=== PATIENT | male | born 1935 | race Caucasian/White ===

== ENCOUNTER 2017-08-19 10:09 | Day surgery (SDC) | payer MEDICARE, BC ==
[~2017-08-19] VITALS: Ht 177.8 cm; Wt 87.8 kg
[~2017-08-19 10:09] MED LIST: ALLO300 PO; ASPI325T PO; BUPR150T3 PO; HYDR-2768 PO; NAPR500 PO; TAB-TAB PO; TELM1TAB56 PO
[2017-08-19] MEDS ORDERED: IOHEXOL 350 MG/ML 50 ML BTL (for Cath Lab) OTHER ONE (10:10)
[2017-08-19 10:30] VITALS: BP 137/63; PULSE 70; RESP 17; TEMP 97.8; O2SAT 97
[2017-08-19] MEDS ORDERED: BUPR150CR PO (11:02)
[2017-08-19] MEDS ORDERED: ASPI-516 CHEW (11:02)
[2017-08-19] MEDS ORDERED: METO25TA3 PO (11:02)
[2017-08-19] MEDS ORDERED: LOSA50TA PO (11:02)
[2017-08-19] MEDS ORDERED: ISOS60TA PO (11:02)
[2017-08-19 11:08] LABS: AUTOMATED NEUTROPHIL # 2.4 TH/MM3 (1.8-7.7); BASOPHIL # 0.1 TH/MM3 (0-0.2); EOSINOPHIL # 0.2 TH/MM3 (0-0.4); EOSINOPHIL % 4.8 % (0.0-4.0); HEMATOCRIT 38.6 % (39.0-51.0); HEMO FLAGS DIFF FINAL; LYMPH % 26.5 % (9.0-44.0); LYMPHOCYTE # 1.1 TH/MM3 (1.0-4.8); MEAN CELL VOLUME 89.4 FL (80.0-100.0); MEAN CORPUSCULAR HEMOGLOBIN 30.1 PG (27.0-34.0); MEAN CORPUSCULAR HGB CONC 33.7 % (32.0-36.0); MONO % 9.1 % (0.0-8.0); NEUT % 57.6 % (16.0-70.0); PLATELET COUNT 254 TH/MM3 (150-450); RED BLOOD COUNT 4.31 MIL/MM3 (4.50-5.90); RED CELL DISTRIBUTION WIDTH 14.4 % (11.6-17.2); WHITE BLOOD COUNT 4.1 TH/MM3 (4.0-11.0)
--- NOTE | 2017-08-19 11:21 | PD.VS.PN ---
Pre-operative Note Pre-operative diagnosis: PAD, R LE claudication Planned procedure: Aortogram w/ R LE angiogram, possible endovascular intervention Interval History: Pt has been feeling well and ready for surgery Labs: Laboratory Results Test 08/19/17 10:30 Hematocrit 38.6 % (39.0-51.0) Hemoglobin 13.0 GM/DL (13.0-17.0) Mean Corpuscular Hemoglobin 30.1 PG (27.0-34.0) Mean Corpuscular Hemoglobin Concent 33.7 % (32.0-36.0) Mean Corpuscular Volume 89.4 FL (80.0-100.0) Mean Platelet Volume 7.6 FL (7.0-11.0) Platelet Count 254 TH/MM3 (150-450) Red Blood Count 4.31 MIL/MM3 (4.50-5.90) Red Cell Distribution Width 14.4 % (11.6-17.2) White Blood Count 4.1 TH/MM3 (4.0-11.0) Blood: none needed Orders: NPO Post-operative destination: DOCU Operative site marked: Yes Consent: Informed consent has been obtained from Mariano Butler III. I have explained the procedure in detail and discussed the risks, benefits, and potential complications. All questions have been answered. Patient contact information: [phone] Scott Grace MD Aug 19, 2017 11:21
[2017-08-19 11:28] LABS: BICARBONATE 27.8 MEQ/L (21.0-32.0); POTASSIUM 4.2 MEQ/L (3.5-5.1)
[2017-08-19] MEDS ORDERED: MIDAZOLAM HCL 2 MG/2 ML VIAL ONE (11:40)
[2017-08-19] MEDS ORDERED: HEPARIN-NS/PF INJ 1,000 ML ONE (11:40)
[2017-08-19] MEDS ORDERED: SODIUM BICARBONATE 100 MEQ in D5W 1000 ML IV SCH (12:00)
--- NOTE | 2017-08-19 12:09 | HHI.PR ---
cc: Scott Grace MD Immediate Post Op Note Procedure Date: Aug 19, 2017 Pre Op Diagnosis: R LE claudication, PAD Post Op Diagnosis: R LE claudication, PAD Surgeon: Scott Grace Car Deliverer(s): none Procedure: Aortogram w/ R LE angiogram Findings: R popliteal occlusion Proximal AT/PT/peroneal occlusion Additional Information: 4F LEFT HAMMER ADJUSTER sheath removed in label printing machinist Complications: none Specimen(s) removed: none Estimated blood loss: 10mL Anesthesia: MAC Drains: None Patient to: Other (DOCU) Patient Condition: Good Date/Time of Procedure: SEE SURGICAL CARE RECORD Scott Grace MD Aug 19, 2017 12:09
--- NOTE | 2017-08-19 12:16 | CATHPROC ---
Rewardable HIS Report Study Information Study Number Admission Scheduled Start Study Start [id number] Aug 19 2017 10:09AM 08/19/2017 Aug 19 2017 10:45AM Kathleen Service Cath Endovascular Study Admit Source Facility Department Other [facility] - Clinical Rn Physician and Clinical Staff Initial Scott [employer] Teacher Adelaida Delarosa,BETY Other cathlab, cathlab Recorder Joel Wolf RCIS(BS) Scrub Jesse JordanRT(R) Procedures Performed Procedure Location (Site) Vessel Name Abdominal Angiogram Abd Aorta (A3) Aorta Wire insertion Fem Art (right) Femoral Art Equipment Time Licensed Clinical Social Worker Description Size Mfg Part Number Used/Scraped [id number] 11:50 ANGIO-DYNAMICS OMNI FLUSH 65CM CATHETER FR 4 Used *[id number] INTRODUCER SET, 11:50 [employer] FR 5 [id number] *[id number] Used MICROPUNCTURE, STIFFENED [id number] 11:50 Bunker Mode INDUSTRIES PACK, CCL CUSTOM * Used *[id number] 11:50 MERIT MEDICAL PRESSURE TUBING 48" 48" [id number] 11:50 NAMIC TUBING, HIGH PRESSURE 20" 20" Used *[id number] 11:50 NYCOMED OMNIPAQUE, 300 MG, 150ML 150ML [id number] Used 11:50 NYCOMED OMNIPAQUE, 300 MG, 50ML 50ML [id number] Used [id number] 11:50 NOLASCO MEDICAL BLANKET,WARM AIR CCL * Used *[id number] 11:50 TERUMO MEDICAL SHEATH, FR4 TERUMO (10CM) FR 4 Used *[id number] 11:50 TERUMO MEDICAL SHEATH, FR4 TERUMO (10CM) FR 4 Used *[id number] WIRE, ANGLED GLIDE .035 [id number] 11:50 TERUMO MEDICAL/CAROLE 260CM Used 260CM *[id number] History: Allergies Allergy Reaction No Known Allergies History: Other Current Smoker No Medication Medication Total Dose (Bolus/Oral) Medication Total Dosage/Unit 1% XYLOCAINE 20 mL FENTANYL 50 mcg VERSED 2 mg Medications (Bolus/Oral) Medication Time Given Dosage/Unit Administered By Reason 08/19/2017 11:48:29 VERSED 2 mg Adelaida Delarosa AM 2 mg VERSED given in lab by Adelaida Delarosa, RN in Left Antecubital via Peripheral IV. Ordered by Scott Ruiz. 08/19/2017 11:49:02 FENTANYL 50 mcg Adelaida Delarosa AM 50 mcg FENTANYL given in lab by Adelaida Delarosa RN in Left Antecubital via Peripheral IV. Ordered by Scott Grace. 08/19/2017 11:49:20 1% XYLOCAINE 20 mL Scott Grace AM 20 mL 1% XYLOCAINE given in lab by Scott Grcae in Left Groin via Subcutaneous. Medication (Drip) Medication Time Given Dosage/Unit Concentration/Unit Diluent (ml) Solutio n 08/19/2017 11:38:05 IV Solutions 0 mL (IV) 500 NaCl .9 AM Patient arrived on IV Solutions given by cathpetra cathlab in Left Antecubital via Peripheral IV. Pump /Drip Flow = 20 ml/hr using NaCl .9. Ordered by Scott Grace. Initial Case Assessment Circulatory - Right Pulses Femoral 3 Scale (0,1,2,3,4,d) Circulatory - Left Pulses Femoral 3 Scale (0,1,2,3,4,d) Chronological Log Time Study Chronological Log 11:37:57 Patient arrived via Bed. 11:37:58 MD arrived. 11:37:58 Patient Name, D.O.B, / Armband Verified By R.N. 11:37:58 Consent signed by the physician and the patient and verified by the Clinical Rn staff. 11:37:59 Pre-op and post- op instructions given; patient acknowledges understanding of instructions. 11:37:59 Verbal Stimulation=2 Physical Stimulation=2 Airway=2 Respiration=2 TOTAL=8. (0=absent, 1=li mited, 2=present) 11:38:00 Immediate Presedation assesment performed by physician. 11:38:00 Presedation assessment performed by Clinical Rn RN. 11:38:01 Immediate Presedation assesment performed by physician. 11:38:01 Patient has been NPO for More than 6Hrs. 11:38:02 Skin Breakdown- none per patient 11:38:02 Patient Warmer Placed on the Table. 11:38:04 Barron Prominences Protected 11:38:05 A # 20 IV was noted in the Antecubital (left). Grade = 0 Patient arrived on IV Solutions given by cathlab cathlab in Left Antecubital via Peripheral IV . Pump/Drip Flow = 20 11:38:05 ml/hr using NaCl .9. Ordered by Scott Grace. 11:38:06 History and physical on the chart or being dictated. Assessment: Initial Case 11:42:25 Right Pulses: Femoral=3 Left Pulses: Femoral=3 Vitals capture started with the following parameters, Patient=Adult, Interval=5 min, Initial Pr losnvk=157 mmHg, 11:42:27 Deflation Rate=5 mmHg, Cuff placed on Right Arm 11:43:06 Vitals capture stopped. Vitals capture started with the following parameters, Patient=Adult, Interval=5 min, Initial Pr cmmhji=192 mmHg, 11:46:11 Deflation Rate=5 mmHg, Cuff placed on Right Arm 11:46:39 HR=64 bpm, ZLHX=622/85 mmhg, SpO2=98.0 %, Pain=0, King=10, Rouse=2 11:47:37 Bilateral groins prepped with 2% chlorhexidine, and draped after a 3 minute waiting time. Time Out. Correct patient, correct procedure, correct physician, power injector loaded with con trast with surgical team 11:48:17 present. Time Out Concurred by MD and individual staff in procedure. 11:48:21 Case Start 11:48:29 2 mg VERSED given in lab by Adelaida Delarosa, BETY in Left Antecubital via Peripheral IV. Orde red by Scott Grace. 11:49:02 50 mcg FENTANYL given in lab by Adelaida Delarosa RN in Left Antecubital via Peripheral IV. Ordered by Scott Grace. 11:49:20 20 mL 1% XYLOCAINE given in lab by Scott Grace in Left Groin via Subcutaneous. 11:51:24 Access site was Left Femoral Artery. A INTRODUCER SET, MICROPUNCTURE, STIFFENED FR 5 was advanced into the Fem Art (left) using the Percutaneous 11:51:31 technique. A SHEATH, FR4 TERUMO (10CM) FR 4 was exchanged in the Fem Art (left). This was necessary in ord er to 11:51:41 accomodate a larger catheter. 11:51:48 HR=67 bpm, XVEV=230/62 mmhg, SpO2=93.0 %, Resp=10 B/min, Pain=0, King=10, Rouse=2 11:52:28 Reference ECG taken A OMNI FLUSH 65CM CATHETER FR 4 was advanced over a wire. OMNIPAQUE, 300 MG, 150ML 150ML was us ed for 11:52:43 injections. 11:52:54 Through a OMNI FLUSH 65CM CATHETER FR 4, The Abdominal Aorta was injected with 10 cc's of c ontrast. 11:56:49 HR=64 bpm, GJCI=727/64 mmhg, SpO2=93.0 %, Resp=0 B/min, Rouse=2 11:58:33 Through a OMNI FLUSH 65CM CATHETER FR 4, The Abdominal Aorta was injected with 10 cc's of c ontrast. 11:58:44 Through a OMNI FLUSH 65CM CATHETER FR 4, The Abdominal Aorta was injected with 10 cc's of c ontrast. 11:58:53 A wire was inserted via Fem Art (right). 11:59:15 Through a OMNI FLUSH 65CM CATHETER FR 4, The Femoral Run-off was injected with 4 cc's per s econd. 11:59:30 Through a OMNI FLUSH 65CM CATHETER FR 4, The Femoral Run-off was injected with 4 cc's per s econd. 11:59:40 Through a OMNI FLUSH 65CM CATHETER FR 4, The Femoral Run-off was injected with 4 cc's per second. 11:59:57 Through a OMNI FLUSH 65CM CATHETER FR 4, The Femoral Run-off was injected with 4 cc's per second. 12:00:38 Catheter was removed 12:02:21 HR=63 bpm, JAEU=462/61 mmhg, DvJ5=832.0 %, Resp=7 B/min, Rouse=2 12:02:33 Case End 12:05:51 Sheath removed; pressure applied to access site. 12:08:01 HR=64 bpm, LSPH=216/70 mmhg, WqC7=621.0 %, Resp=8 B/min, Rouse=2 12:10:35 Sterile dressing applied to site 12:10:38 No case complications noted. 12:10:40 Cine recording checked. 12:10:42 Bedside Report will be given. 12:10:44 Contrast Scanned 12:11:58 HR=52 bpm, ESFA=830/79 mmhg, LfK9=030.0 %, Resp=3 B/min, Rouse=2 12:14:33 Patient moved to stretcher End Study - Contrast Media Used In Study Contrast Total Opened (mL) Total Used (mL) Total Wasted (mL) Omnipaque 20 20 0 End Study - Radiation Exposure Fluoro Time (minutes) 2.4 End Study - Patient Disposition Complications Transferred To Telemetry Bed
--- NOTE | 2017-08-20 13:06 | MP ---
cc: SCOTT GRACE MD DATE OF SURGERY 08/19/2017 PREOPERATIVE DIAGNOSIS 1. Right lower extremity claudication. 2. Peripheral arterial occlusive disease. POSTOPERATIVE DIAGNOSIS 1. Right lower extremity claudication. 2. Peripheral arterial occlusive disease. PROCEDURE Aortogram with right lower extremity angiogram. ATTENDING SURGEON Scott Grace. SEED DISTRICT SALES MANAGER SURGEON None. ANESTHESIA Local with sedation. INDICATION Mr. Butler is an 82-year-old gentleman with multifactorial leg pain and peripheral arterial occlusive disease. He is taken to the operating room for angiographic evaluation and potential treatment. There is no prior cath-based imaging available for my review. DESCRIPTION OF PROCEDURE Informed consent was obtained from the patient. He was taken to the operating room and placed supine on the operating table. An appropriate timeout was taken to ensure the patient's identity, operative site and planned procedure. The administration of antibiotics was not necessary as this a clean procedure without planned implantation of any foreign object. Everyone in the room agreed with the timeout and we proceeded. His bilateral groins were prepped and draped. The left groin was anesthetized with 1% lidocaine. A 21-gauge micropuncture needle was used to access the left common femoral artery. This was exchanged using Seldinger technique for a micropuncture sheath through which a 0.035 Glidewire was introduced. The micropuncture sheath was exchanged for a 4 Lao sheath. A VCF catheter was placed over the wire through the sheath and aortogram and pelvic arteriogram was obtained. The Glidewire was reintroduced and navigated down to the right common femoral artery and the VCF catheter was advanced over this. The right lower extremity arteriogram was obtained. The Glidewire was reintroduced and the wire, catheter and sheath were all removed and pressure was held for hemostasis. There were no complications. I was present and scrubbed for the entire procedure. INTERPRETATION OF IMAGES The patient has patent infrarenal aorta, common iliac arteries, hypogastric arteries and external iliac arteries. None of these have any hemodynamically significant stenoses. The right common femoral artery and profunda are patent. The SFA is patent down to the popliteal artery at which point it occludes. The below-knee popliteal artery is occluded and the proximal AT, PT and peroneal are all occluded.. Geniculate collaterals reconstitute all three tibial vessels several centimeters after their takeoff. MD EDWARD Gary/SUZANNE /1:09 PM /12:39 PM
== END 2017-08-19 15:25 | disposition home or self-care (01) ==
LOC: HDOC 10:09 → HDIC 10:10 → HDOC 15:25
PROVIDERS: ATTEND Surgery
DX: I73.9 Peripheral vascular disease, unspecified (principal); I10 Essential (primary) hypertension; I70.211 Atherosclerosis of native arteries of extremities with intermittent claudication, right leg
CPT/HCPCS: 36200; 36246; 75625; 75710; 80048; 85025; 99152; C1769; C1893; J1644; J2250; J3010; Q9967

== ENCOUNTER → 2017-11-12 | Outpatient (CLI) | payer MEDICARE, BC ==
[~2017-11-12] MED LIST changes: -ALLO300 PO; +ASPI-516 CHEW; -ASPI325T PO; +BUPR150CR PO; -BUPR150T3 PO; +EZET1TAB8 PO; -HYDR-2768 PO; +ISOS60TA PO; +LOSA50TA PO; +METO25TA3 PO; -NAPR500 PO; +NITR1SUB2 SL; +NITR1SUB3 SL; -TAB-TAB PO; -TELM1TAB56 PO
[2017-11-12 11:59] LABS: AUTOMATED NEUTROPHIL # 5.2 TH/MM3 (1.8-7.7); BASOPHIL # 0.1 TH/MM3 (0-0.2); BASOPHIL % 0.9 % (0.0-2.0); EOSINOPHIL # 0.2 TH/MM3 (0-0.4); EOSINOPHIL % 2.2 % (0.0-4.0); HEMOGLOBIN 13.5 GM/DL (13.0-17.0); LYMPH % 17.2 % (9.0-44.0); LYMPHOCYTE # 1.2 TH/MM3 (1.0-4.8); MEAN CELL VOLUME 87.5 FL (80.0-100.0); MEAN CORPUSCULAR HEMOGLOBIN 29.5 PG (27.0-34.0); MEAN CORPUSCULAR HGB CONC 33.7 % (32.0-36.0); MEAN PLATELET VOLUME 7.9 FL (7.0-11.0); MONO % 7.1 % (0.0-8.0); MONOCYTE # 0.5 TH/MM3 (0-0.9); NEUT % 72.6 % (16.0-70.0); PLATELET COUNT 261 TH/MM3 (150-450); RED BLOOD COUNT 4.57 MIL/MM3 (4.50-5.90); RED CELL DISTRIBUTION WIDTH 14.5 % (11.6-17.2); WHITE BLOOD COUNT 7.2 TH/MM3 (4.0-11.0)
[2017-11-12 12:18] LABS: BACTERIA, URINE RARE /hpf; BILIRUBIN, URINE NEG (NEG); BLOOD, URINE NEG (NEG); GLUCOSE,URINE NEG (NEG); KETONE, URINE NEG (NEG); NITRITE,URINE NEG (NEG); PH, URINE 5.5 (5.0-8.5); SQUAMOUS EPITHELIAL CELL URINE 1 /hpf (0-5); URINE COLOR YELLOW (YELLW/STRAW); URINE LEUKOCYTE ESTERASE NEG (NEG)
--- NOTE | 2017-11-12 12:32 | RADRPT ---
EXAM DATE/TIME: 11/12/2017 12:17 [facility] COMPARISON: No previous studies available for comparison. INDICATIONS : Evalaute for pneumonia,pneumothorax and communicable diseases. Pre-op lower extremity angiogram. MEDICAL HISTORY : Hypertension. SURGICAL HISTORY : CABG. ENCOUNTER: Initial ACUITY: 1 day PAIN SCORE: 0/10 LOCATION: chest FINDINGS: PA and lateral views of the chest demonstrate the lungs to be symmetrically aerated without evidence of mass, infiltrate or effusion. Status post CABG. The cardiomediastinal contours are unremarkable. Osseous structures are intact. CONCLUSION: No acute disease. Keyur Giordano MD on November 12, 2017 at 12:30 Board Certified Radiologist. This report was verified electronically.
[2017-11-12 12:33] LABS: BICARBONATE 27.9 MEQ/L (21.0-32.0); CALCIUM 9.2 MG/DL (8.5-10.1); CREATININE 1.55 MG/DL (0.60-1.30)
--- NOTE | 2017-11-13 11:17 | EKG ---
Date Performed: 11/12/2017 Time Performed: 11:25:28 PTAGE: 82 years EKG: Sinus rhythm WITH FIRST DEGREE AV BLOCK WITH OCCASIONAL SUPRAVENTRICULAR PREMATURE COMPLEXES NONSPECIFIC ST & [address] ABNORMALITY ABNORMAL ECG PREVIOUS TRACING 02/13/2009 07.44.08 Since the previous tracing, no significant change noted DOCTOR: Hua Beltran Interpretating Date/Time 11/13/2017 11:12:15
== END ==
LOC: CPRE 10:57
PROVIDERS: ATTEND Surgery
DX: Z01.810 Encounter for preprocedural cardiovascular examination (principal); Z01.811 Encounter for preprocedural respiratory examination; Z01.812 Encounter for preprocedural laboratory examination; Z01.818 Encounter for other preprocedural examination; I73.9 Peripheral vascular disease, unspecified; R94.31 Abnormal electrocardiogram [ECG] [EKG]
CPT/HCPCS: 36415; 71046; 80048; 81001; 85025; 85610; 85730; 93005

== ENCOUNTER 2017-11-19 11:57 | Day surgery (SDC) | payer MEDICARE, BC ==
[~2017-11-19] VITALS: Ht 177.8 cm; Wt 88.9 kg
[~2017-11-19 11:57] MED LIST changes: -NITR1SUB2 SL
[2017-11-19] MEDS ORDERED: LIDOCAINE HCL 1% PF 5 ML SYRINGE OTHER ONE (12:00)
[2017-11-19] MEDS ORDERED: PROPOFOL 200 MG/20 ML AMP IV ONE (12:00)
[2017-11-19] MEDS ORDERED: PHENYLEPH/NS 1000 MCG/10 ML SYR IV ONE (12:00)
[2017-11-19] MEDS ORDERED: GLYCOPYRROLATE 1 MG/5 ML SYRINGE IV PUSH ONE (12:00)
[2017-11-19] MEDS ORDERED: INSULIN HUMAN REGULAR 1,000 UNITS/10 ML VIAL SQ PRN (13:30)
[2017-11-19] MEDS ORDERED: SODIUM CHLORID 0.9% 500 ML IV PRN (13:30)
[2017-11-19] MEDS ORDERED: POVIDONE IODINE 5% (ANTISEPSIS KIT) 4 APPLICATIONS EACH NARE PRN (13:30)
[2017-11-19] MEDS ORDERED: METOPROLOL TARTRATE 25 MG TAB PO PRN (13:30)
[2017-11-19] MEDS ORDERED: LACTATED RINGER'S 1000 ML IV PRN (13:30)
[2017-11-19] MEDS ORDERED: CHLORHEXIDINE GLUCONATE 2 % 1 PACK (2 CLOTHS) TOPICAL PRN (13:30)
--- NOTE | 2017-11-19 14:26 | HHI.HP ---
History of Present Illness Chief Complaint: R LE PAD, rest pain History of Present Illness 82 yo with PAD and R LE rest pain. Prior angiogram showed popliteal and trifurcation disease. No wounds and no motor dysfunction Past/Family/Social History Past Medical History HTN XOL PAD OA Past Surgical History CEA knee surgery Social History nonsmoker Home Medications Reported Medications Nitroglycerin SL (Nitroglycerin SL) 0.4 Mg Subl, 0.4 MG SL DIRECTED Y for CHEST PAIN, #100 TAB.SL 0 Refills ONE TABLET UNDER THE TONGUE NEEDED FOR CHEST PAIN, MAY REPEAT EVERY FIVE MINUTES FOR A TOTAL OF 3 DOSES OR CALL 911 IF NO RELIEF 11/12/17 Ezetimibe (Ezetimibe) 10 Mg Tab, 10 MG PO HS, #30 TAB 0 Refills 11/12/17 Metoprolol Tartrate (Metoprolol Tartrate) 25 Mg Tab, 12.5 MG PO BID, #60 TAB 0 Refills 08/19/17 Losartan (Losartan) 50 Mg Tab, 50 MG PO DAILY for Blood Pressure Management, # 30 TAB 0 Refills 08/19/17 Isosorbide Mononitrate ER (Isosorbide Mononitrate ER) 60 Mg Tab, 60 MG PO DAILY for Prevent Chest Pain, #30 TAB 0 Refills 08/19/17 Bupropion HCl ER 12 HR (Wellbutrin SR 12 HR) 150 Mg Tab, 150 MG PO Q12HR for Control Depression, TAB 0 Refills 08/19/17 Aspirin (Aspirin) 81 Mg Chew, 81 MG CHEW HS, TAB 0 Refills 08/19/17 Discontinued Reported Medications Nitroglycerin SL (Nitroglycerin SL) 0.3 Mg Subl, 0.3 MG SL DIRECTED Y for CHEST PAIN, #100 TAB.SL 0 Refills ONE TABLET UNDER THE TONGUE NEEDED FOR CHEST PAIN, MAY REPEAT EVERY FIVE MINUTES FOR A TOTAL OF 3 DOSES OR CALL 911 IF NO RELIEF 11/12/17 Coded Allergies: No Known Allergies (Verified Allergy, Unknown, 11/19/17) Review of Systems Constitutional: DENIES: Diaphoretic episodes, Fatigue, Fever, Weight gain, Weight loss, Chills, Dizziness, Change in appetite, Night Sweats Physical Exam Neuro: alert, oriented, no distress HEENT: NC/AT Neck: no JVD Heart: reg rate, no M Lungs: clear B Vascular: no R LE pedal pulses Extremities: no C/C/E Caprini VTE Risk Assessment Caprini VTE Risk Assessment: No/Low Risk (score <= 1) Caprini Risk Assessment Model Point Value = 1 Point Value = 2 Point Value = 3 Point Value = 5 Age 41-60 Minor surgery BMI > 25 kg/m2 Swollen legs Varicose veins or History of unexplained or recurrent spontaneous Oral contraceptives or hormone replacement Sepsis (< 1 month) Serious lung disease, including pneumonia (< 1 month) Abnormal pulmonary function Acute myocardial infarction Congestive heart failure (< 1 month) History of inflammatory bowel disease Medical patient at bed rest Age 61-74 Arthroscopic surgery Major open surgery (> 45 min) Laparoscopic surgery (> 45 min) Malignancy Confined to bed (> 72 hours) Immobilizing plaster cast Central venous access Age >= 75 History of VTE Family history of VTE Factor V Leiden Prothrombin [id number] Lupus anticoagulant Anticardiolipin antibodies Elevated serum homocysteine Heparin-induced thrombocytopenia Other congenital or acquired thrombophilia Stroke (< 1 month) Elective arthroplasty Hip, pelvis, or leg fracture Acute spinal cord injury (< 1 month) Prophylaxis Regimen Total Risk Factor Score Risk Level Prophylaxis Regimen 0-1 Low Early ambulation 2 Moderate Order ONE of the following: *Sequential Compression Device (SCD) *Heparin 5000 units SQ BID 3-4 Higher Order ONE of the following medications: *Heparin 5000 units SQ TID *Enoxaparin/Lovenox 40 mg SQ daily (WT < 150 kg, CrCl > 30 mL/min) *Enoxaparin/Lovenox 30 mg SQ daily (WT < 150 kg, CrCl > 10-29 mL/min) *Enoxaparin/Lovenox 30 mg SQ BID (WT < 150 kg, CrCl > 30 mL/min) AND/OR *Sequential Compression Device (SCD) 5 or more Highest Order ONE of the following medications: *Heparin 5000 units SQ TID (Preferred with Epidurals) *Enoxaparin/Lovenox 40 mg SQ daily (WT < 150 kg, CrCl > 30 mL/min) *Enoxaparin/Lovenox 30 mg SQ daily (WT < 150 kg, CrCl > 10-29 mL/min) *Enoxaparin/Lovenox 30 mg SQ BID (WT < 150 kg, CrCl > 30 mL/min) AND *Sequential Compression Device (SCD) Assessment and Plan Plan PAD and R LE rest pain Ready for angiogram All questions answered. Operative site marked. Discharge Planning later today [phone] () [phone] (son) Scott Grace MD Nov 19, 2017 14:26
[2017-11-19] MEDS ORDERED: PROTAMINE SULFATE 50 MG/5 ML VIAL ONE (14:57)
[2017-11-19] MEDS ORDERED: HEPARIN-NS/PF INJ 500 ML ONE (14:57)
[2017-11-19] MEDS ORDERED: HEPARIN SODIUM - IV 10,000 UNITS/10 ML VIAL ONE (14:57)
[2017-11-19] MEDS ORDERED: IOHEXOL 300 INJ 50 ML IV ONE (15:41)
--- NOTE | 2017-11-19 16:43 | HHI.PR ---
cc: Scott Grace MD Immediate Post Op Note Procedure Date: Nov 19, 2017 Pre Op Diagnosis: R LE PAD, rest pain Post Op Diagnosis: R LE PAD, rest pain Surgeon: Scott Grace Farm Planner(s): none Procedure: R LE angiogram Findings: infrapopliteal disease and pedal disease Unable to traverse popliteal occlusion Complications: none Specimen(s) removed: none Estimated blood loss: 10mL Anesthesia: LMA Drains: None Patient to: PACU Patient Condition: Good Implant/Devices: SEE IMPLANT LOG (if applicable) Date/Time of Procedure: SEE SURGICAL CARE RECORD Scott Grace MD Nov 19, 2017 16:43
[2017-11-19] MEDS ORDERED: DO NOT ADM ANY ANTICOAGULANT DRUGS PRN (17:45)
[2017-11-19] MEDS ORDERED: *LABETALOL HCL 100 MG/20 ML VIAL PERIprocedural Use ONLY ONE (18:08)
[2017-11-19 19:00] VITALS: BP 140/67; PULSE 62; RESP 13; TEMP 97.2; O2SAT 93
--- NOTE | 2017-11-20 11:24 | MP ---
cc: Scott Grace MD DATE OF OPERATION: 11/19/2017 PREOPERATIVE DIAGNOSIS: Right lower extremity peripheral arterial occlusive disease, rest pain. POSTOPERATIVE DIAGNOSIS: Right lower extremity peripheral arterial occlusive disease, rest pain. PROCEDURE PERFORMED: Right lower extremity angiogram. ATTENDING SURGEON: Scott Grace MD ANESTHESIA: LMA. INDICATIONS FOR PROCEDURE: Mr. Butler is an 82-year-old gentleman with right lower extremity rest pain and infrapopliteal disease. He is taken to the operating room for angiographic evaluation and treatment. DETAILS OF PROCEDURE: Informed consent was obtained from the patient. He was taken to the operating room and placed supine on the operating table. Appropriate timeout was taken to ensure the patient's identity, operative site and planned procedure. The administration of antibiotics was unnecessary as this was a clean procedure without planned implantation of any foreign objects. Everyone in the room agreed to time out and we proceeded. His bilateral groins and right leg were prepped and draped and a 21-gauge Micropuncture needle was used to access the left common femoral artery. This was exchanged using Seldinger technique with Micropuncture sheath, with a 0.035 Glidewire was introduced. The Micropuncture sheath was exchanged for a 5-Hong Konger sheath and a 4-Hong Konger VCF catheter was placed over the wire through the sheath. The wire and catheter were navigated down to the right SFA. The wire was exchanged for a Xie. The patient was then heparinized with 5000 units of IV heparin. The VCF catheter and 5-Hong Konger sheath were removed and 6-Hong Konger 90 cm sheath was then introduced. This was passed down to the below-knee popliteal artery and the CXI catheter was placed over the Xie. The Xie was exchanged for a MICROSOFT DYNAMICS DEVELOPER wire. Using the MICROSOFT DYNAMICS DEVELOPER and CXI, multiple attempts for recanalized infrapopliteal disease, but these were unsuccessful. We then, using ultrasonographic guidance, attempted multiple times to get in the anterior tibial artery distally and retrograde recanalize the artery, but this was similarly unsuccessful. The wire, catheter and sheath were removed and the groin was closed with Angio-Seal. No complications. I was present, scrubbed and performed the entire procedure, Scott Grace MD RJF/IRON , 04:46 PM , 05:15 PM
== END 2017-11-19 19:08 | disposition home or self-care (01) ==
LOC: HCVO 11:57 → HSDC 19:08
PROVIDERS: ATTEND Surgery
DX: I73.9 Peripheral vascular disease, unspecified (principal); I10 Essential (primary) hypertension; I25.10 Atherosclerotic heart disease of native coronary artery without angina pectoris; Z95.1 Presence of aortocoronary bypass graft; Z79.82 Long term (current) use of aspirin
CPT/HCPCS: 01916; 36246; 75710; 86850; 86900; 86901; C1769; J1644; J2370; J2720; J3010; Q9967

== ENCOUNTER → 2018-02-12 | Outpatient (CLI) | payer MEDICARE, BC ==
[~2018-02-12] MED LIST changes: +AMLO10TA2 PO; +EVOL1INJ SQ; +LOSA100T PO; +MULTTAB67 PO; +PERC5TAB12 PO
[2018-02-12 12:24] LABS: BASOPHIL # 0.1 TH/MM3 (0-0.2); BASOPHIL % 1.1 % (0.0-2.0); EOSINOPHIL # 0.2 TH/MM3 (0-0.4); EOSINOPHIL % 3.7 % (0.0-4.0); HEMATOCRIT 38.4 % (39.0-51.0); LYMPH % 22.8 % (9.0-44.0); LYMPHOCYTE # 1.4 TH/MM3 (1.0-4.8); MEAN CORPUSCULAR HEMOGLOBIN 29.4 PG (27.0-34.0); MEAN CORPUSCULAR HGB CONC 33.8 % (32.0-36.0); MEAN PLATELET VOLUME 7.8 FL (7.0-11.0); MONO % 6.5 % (0.0-8.0); MONOCYTE # 0.4 TH/MM3 (0-0.9); NEUT % 65.9 % (16.0-70.0); PLATELET COUNT 272 TH/MM3 (150-450); RED BLOOD COUNT 4.41 MIL/MM3 (4.50-5.90); RED CELL DISTRIBUTION WIDTH 14.1 % (11.6-17.2); WHITE BLOOD COUNT 6.1 TH/MM3 (4.0-11.0)
[2018-02-12 12:35] LABS: PROTHROMBIN TIME - PATIENT 9.8 SEC (9.8-11.6)
[2018-02-12 13:23] LABS: BICARBONATE 23.3 MEQ/L (21.0-32.0); CALCIUM 8.8 MG/DL (8.5-10.1); CREATININE 1.38 MG/DL (0.60-1.30)
== END ==
LOC: CPRE 11:39
PROVIDERS: ATTEND Surgery
DX: Z01.812 Encounter for preprocedural laboratory examination (principal); Z01.818 Encounter for other preprocedural examination; I73.9 Peripheral vascular disease, unspecified
CPT/HCPCS: 36415; 80048; 85025; 85610

== ENCOUNTER 2018-02-15 08:55 | Inpatient (IN) | payer MEDICARE, BC ==
[2018-02-15] VITALS (9 sets, daily range): BP systolic 109–138; BP diastolic 58–65; PULSE 60–72; RESP 16–18; TEMP 97.9–98.4; O2SAT 98–99
[~2018-02-15] VITALS: Ht 177.8 cm; Wt 90.0 kg
[~2018-02-15 08:55] MED LIST changes: -EZET1TAB8 PO; -ISOS60TA PO; -LOSA50TA PO; -PERC5TAB12 PO
[2018-02-15] MEDS ORDERED: LACTATED RINGER'S 1000 ML IV PRN (09:45)
[2018-02-15] MEDS ORDERED: SODIUM CHLORID 0.9% 500 ML IV PRN (09:45)
[2018-02-15] MEDS ORDERED: CHLORHEXIDINE GLUCONATE 2 % 1 PACK (2 CLOTHS) TOPICAL PRN (09:45)
[2018-02-15] MEDS ORDERED: POVIDONE IODINE 5% (ANTISEPSIS KIT) 4 APPLICATIONS EACH NARE PRN (09:45)
[2018-02-15] MEDS ORDERED: METOPROLOL TARTRATE 25 MG TAB PO PRN (09:45)
--- NOTE | 2018-02-15 11:00 | HHI.HP ---
History of Present Illness Chief Complaint: R LE rest pain, PAD History of Present Illness 82 yo male with multiple comorbidities and R LE rest pain. Presents for revascularization. No change in health since I saw him in clinic. Notes that leg hurts every night. No tissue loss Past/Family/Social History Past Medical History PAD XOL HTN CVOD Past Surgical History B LE angio CEA knee surgery Social History former tobacco Home Medications Reported Medications Evolocumab PF inj (Repatha Sureclick PF Inj) 140 Mg/Ml Pfpen, 140 MG SQ every 2 weeks, INJECTION 02/12/18 Multiple Vitamin (Multiple Vitamin) 1 Tab, 1 TAB PO DAILY for Nutritional Supplement, TAB 0 Refills 02/12/18 Amlodipine (Amlodipine) 10 Mg Tab, 10 MG PO HS for Blood Pressure Management, # 30 TAB 0 Refills 02/12/18 Metoprolol Tartrate (Metoprolol Tartrate) 25 Mg Tab, 25 MG PO BID, #60 TAB 0 Refills 02/12/18 Losartan (Losartan) 100 Mg Tab, 100 MG PO DAILY for Blood Pressure Management, # 30 TAB 0 Refills 02/12/18 Nitroglycerin SL (Nitroglycerin SL) 0.4 Mg Subl, 0.4 MG SL DIRECTED Y for CHEST PAIN, #100 TAB.SL 0 Refills ONE TABLET UNDER THE TONGUE NEEDED FOR CHEST PAIN, MAY REPEAT EVERY FIVE MINUTES FOR A TOTAL OF 3 DOSES OR CALL 911 IF NO RELIEF 11/12/17 Bupropion HCl ER 12 HR (Wellbutrin SR 12 HR) 150 Mg Tab, 150 MG PO Q12HR for Control Depression, TAB 0 Refills 08/19/17 Aspirin (Aspirin) 81 Mg Chew, 81 MG CHEW HS, TAB 0 Refills 08/19/17 Discontinued Reported Medications Ezetimibe (Ezetimibe) 10 Mg Tab, 10 MG PO HS, #30 TAB 0 Refills 11/12/17 Metoprolol Tartrate (Metoprolol Tartrate) 25 Mg Tab, 12.5 MG PO BID, #60 TAB 0 Refills 08/19/17 Losartan (Losartan) 50 Mg Tab, 50 MG PO DAILY for Blood Pressure Management, # 30 TAB 0 Refills 08/19/17 Isosorbide Mononitrate ER (Isosorbide Mononitrate ER) 60 Mg Tab, 60 MG PO DAILY for Prevent Chest Pain, #30 TAB 0 Refills 08/19/17 Coded Allergies: No Known Allergies (Verified Allergy, Unknown, 11/19/17) Review of Systems Constitutional: DENIES: Diaphoretic episodes, Fatigue, Fever, Weight gain, Weight loss, Chills, Dizziness, Change in appetite, Night Sweats Cardiovascular: COMPLAINS OF: Chest pain, Palpitations, Syncope, Dyspnea on Exertion, PND, Lower Extremity Edema, Orthopnea, Claudication Physical Exam Neuro: Alert and oriented. CAPONE HEENT: NC/AT Neck: no JVD Heart: reg rate, no M Lungs: clear B Vascular: nonpalpable pulses Extremities: no wounds angio in OR Caprini VTE Risk Assessment Caprini VTE Risk Assessment: No/Low Risk (score <= 1) Caprini Risk Assessment Model Point Value = 1 Point Value = 2 Point Value = 3 Point Value = 5 Age 41-60 Minor surgery BMI > 25 kg/m2 Swollen legs Varicose veins or History of unexplained or recurrent spontaneous Oral contraceptives or hormone replacement Sepsis (< 1 month) Serious lung disease, including pneumonia (< 1 month) Abnormal pulmonary function Acute myocardial infarction Congestive heart failure (< 1 month) History of inflammatory bowel disease Medical patient at bed rest Age 61-74 Arthroscopic surgery Major open surgery (> 45 min) Laparoscopic surgery (> 45 min) Malignancy Confined to bed (> 72 hours) Immobilizing plaster cast Central venous access Age >= 75 History of VTE Family history of VTE Factor V Leiden Prothrombin [id number] Lupus anticoagulant Anticardiolipin antibodies Elevated serum homocysteine Heparin-induced thrombocytopenia Other congenital or acquired thrombophilia Stroke (< 1 month) Elective arthroplasty Hip, pelvis, or leg fracture Acute spinal cord injury (< 1 month) Prophylaxis Regimen Total Risk Factor Score Risk Level Prophylaxis Regimen 0-1 Low Early ambulation 2 Moderate Order ONE of the following: *Sequential Compression Device (SCD) *Heparin 5000 units SQ BID 3-4 Higher Order ONE of the following medications: *Heparin 5000 units SQ TID *Enoxaparin/Lovenox 40 mg SQ daily (WT < 150 kg, CrCl > 30 mL/min) *Enoxaparin/Lovenox 30 mg SQ daily (WT < 150 kg, CrCl > 10-29 mL/min) *Enoxaparin/Lovenox 30 mg SQ BID (WT < 150 kg, CrCl > 30 mL/min) AND/OR *Sequential Compression Device (SCD) 5 or more Highest Order ONE of the following medications: *Heparin 5000 units SQ TID (Preferred with Epidurals) *Enoxaparin/Lovenox 40 mg SQ daily (WT < 150 kg, CrCl > 30 mL/min) *Enoxaparin/Lovenox 30 mg SQ daily (WT < 150 kg, CrCl > 10-29 mL/min) *Enoxaparin/Lovenox 30 mg SQ BID (WT < 150 kg, CrCl > 30 mL/min) AND *Sequential Compression Device (SCD) Assessment and Plan Plan RIGHT leg bypass POA to [facility] Discharge Planning 3-4 days : [phone] daughter: [phone] Scott Grace MD Feb 15, 2018 11:00
[2018-02-15] MEDS ORDERED: PROTAMINE SULFATE 50 MG/5 ML VIAL ONE (11:23)
[2018-02-15] MEDS ORDERED: ceFAZolin 2 GM PREMIX 50 ML ONE (11:23)
[2018-02-15] MEDS ORDERED: HEPARIN SODIUM - IV 10,000 UNITS/10 ML VIAL ONE ×2 (11:23→11:35)
[2018-02-15] MEDS ORDERED: HEPARIN-NS/PF INJ 500 ML ONE (11:23)
[2018-02-15] MEDS ORDERED: THROMBIN (TOPICAL) 20,000 UNIT SPRAY KIT ONE (11:23)
[2018-02-15] MEDS ORDERED: ACETAMINOPHEN 1000 MG/100 ML 100 ML IV ONE (11:28)
[2018-02-15] MEDS ORDERED: NEOSTIGMINE 5 MG/5 ML SYRINGE IV PUSH ONE (12:00)
[2018-02-15] MEDS ORDERED: LIDOCAINE HCL 1% PF 5 ML SYRINGE OTHER ONE (12:00)
[2018-02-15] MEDS ORDERED: ePHEDrine/NS 25 MG/5 ML SYRINGE IV ONE (12:00)
[2018-02-15] MEDS ORDERED: PROPOFOL 200 MG/20 ML AMP IV ONE (12:00)
[2018-02-15] MEDS ORDERED: SODIUM CHLORID 0.9% 500 ML INJ 500 ML IV ONE (12:00)
[2018-02-15] MEDS ORDERED: GLYCOPYRROLATE 1 MG/5 ML SYRINGE IV PUSH ONE (12:00)
[2018-02-15] MEDS ORDERED: PHENYLEPH/NS 1000 MCG/10 ML SYR IV ONE (12:00)
[2018-02-15] MEDS ORDERED: ROCURONIUM INJ 50 MG/5 ML SYRINGE IV PUSH ONE (12:00)
[2018-02-15] MEDS ORDERED: PHENYLEPHRINE HCL 10 MG/ML VIAL IV ONE (12:00)
[2018-02-15] MEDS ORDERED: VASOPRESSIN 20 UNITS/ML VIAL ONE (13:51)
--- NOTE | 2018-02-15 14:28 | HHI.PR ---
cc: Scott Grace MD; David Boston MD Immediate Post Op Note Procedure Date: Feb 15, 2018 Pre Op Diagnosis: R LE rest pain, PAD Post Op Diagnosis: R LE rest pain, PAD Surgeon: Scott Grace Bench Shear Operator(s): Scott Contreras Procedure: 1. R LE angiogram 2. R SFA-AT bypass (cryo) Findings: small and diseased AT Additional Information: palpable graft pulse and strong DP signal at conclusion of case Complications: none Specimen(s) removed: none Estimated blood loss: 200mL Anesthesia: General Drains: None Fluids: 2200mL IVF Urinary Output (mLs): 475 Patient to: PACU Patient Condition: Good Implant/Devices: SEE IMPLANT LOG (if applicable) Date/Time of Procedure: SEE SURGICAL CARE RECORD Scott Grace MD Feb 15, 2018 14:28
[2018-02-15] MEDS ORDERED: SENNOSIDES 8.6 MG TAB PO PRN (14:30)
[2018-02-15] MEDS ORDERED: BISACODYL 10 MG SUPP RECTAL PRN (14:30)
[2018-02-15] MEDS ORDERED: LACTULOSE SYRUP 20 GM/30 ML CUP PO PRN (14:30)
[2018-02-15] MEDS ORDERED: MAGNESIUM HYDROXIDE SUSP 30 ML CUP PO PRN (14:30)
[2018-02-15] MEDS ORDERED: EVOLOCUMAB 140 MG SQ SCH (14:30)
[2018-02-15] MEDS ORDERED: IOHEXOL 350 MG/ML 50 ML BTL (for RAD DIAG) IVCONTRAST ONE (14:32)
[2018-02-15] MEDS ORDERED: DO NOT ADM ANY ANTICOAGULANT DRUGS PRN (14:46)
[2018-02-15] MEDS ORDERED: MIDAZOLAM HCL 2 MG/2 ML VIAL ONE (14:53)
[2018-02-15] MEDS ORDERED: ENOXAPARIN SODIUM 40 MG/0.4 ML SYRINGE SQ SCH (15:00)
--- NOTE | 2018-02-15 16:23 | MP ---
cc: Scott Grace MD DATE OF OPERATION: 02/15/2018 PREOPERATIVE DIAGNOSIS: Right lower extremity rest pain, peripheral vascular disease. POSTOPERATIVE DIAGNOSIS: Right lower extremity rest pain, peripheral vascular disease. PROCEDURE: 1. Right lower extremity angiograms. 2. Right SFA to anterior tibial artery bypass with cryopreserved vein. ATTENDING SURGEON: Scott Grace MD MEDICAL INSURANCE CLAIMS PROCESSOR SURGEON: Scott Contreras. ANESTHESIA: General. INDICATIONS: Mr. Butler is an 82-year-old gentleman with right lower extremity rest pain. He was taken to the operating room for a distal bypass. There was no suitable outflow imaging that had been obtained over the past 6 months and so an angiogram was performed at the beginning of the case to determine his optimal outflow vessel. DESCRIPTION OF PROCEDURE: Informed consent was obtained from the patient. He was taken to the operating room and placed supine on the operating table. An appropriate timeout was taken to ensure the patient's identity, operative site, and planned procedure. The administration of 2 grams of Ancef was initiated prior to skin incision and will be discontinued after a single preoperative dose. Everyone in the room agreed with the timeout and we proceeded. He was prepped from his nipples to toes and then a 21-gauge micropuncture needle was used to access the left common femoral artery . This was exchanged using Seldinger technique for a micropuncture sheath, through which a 0.035 Glidewire was inserted. The micropuncture sheath was exchanged for a 5-Macanese sheath and a VCF catheter was placed over the wire and through the sheath, navigated down to the right common femoral artery and indeed in the superficial femoral artery and the right lower extremity arteriogram was obtained. 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 The peroneal artery was also patent, but the posterior tibial artery was occluded. The wire, catheter and sheath were removed and the groin was closed using an Angio-Seal. Incision was made on the patient's right anterior thigh, carried down through the subcutaneous tissue with electrocautery. The superficial femoral artery was identified and dissected free. A tunnel was then created underneath the rectus femoris muscles. An incision was made in the mid, right lateral calf, carried down through subcutaneous tissue with electrocautery. The anterior tibial artery was identified. There were noted to be large veins on either side of it. The anterior tibial artery was dissected free for several centimeters and a tunnel was then created between these 2 incisions. The patient was systemically heparinized and throughout the remainder of the case, ACT was confirmed to be greater than 250. Cryopreserved tissue was brought up onto the field and prepared in the standard fashion. Proximal and distal control of the superficial femoral artery was obtained with fundal clamps and a longitudinal arteriotomy was made with an 11 blade, extended with Hang scissors. The vein was spatulated and sewn end-to-side to the SFA with running 5-0 Prolene suture. At the completion, it was flushed and noted to be hemostatic. It was passed underneath the muscle and then the subcutaneous plane on the lateral aspect of the leg and proximal and distal control of the anterior tibial artery was obtained with Serrefine clamps and a longitudinal arteriotomy was made with an 11 blade, extended with [place] scissors. The vein was then cut to appropriate length, spatulated and sewn end-to-side with running 6-0 Prolene suture. The patient was flushed and noted to be hemostatic. The tunnel was then mobilized somewhat to provide a nicer course for the vein to pass. There was a nice palpable pulse in the vein graft and a Doppler signal that was graft dependent at the foot. The wounds were irrigated and made hemostatic. The heparin was reversed with protamine. The wounds were closed with 2-0 Polysorb 3-0 Polysorb and 4-0 Monocryl. Sponge and needle counts were correct at the end of the case. I was present, scrubbed, and performed the entire procedure. MD EDWARD Gary/ANITRA , 02:54 PM , 04:22 PM
[2018-02-15] MEDS: MORPHINE SULFATE 4 MG/ML INJ IV PUSH PRN ×3 (17:30→23:18)
[2018-02-15] MEDS: HYDROmorphone HCL 2 MG TAB PO PRN (18:04)
[2018-02-15] MEDS: ASPIRIN 81 MG CHEW TAB CHEW SCH (20:28)
[2018-02-15] MEDS: FAMOTIDINE 20 MG TAB PO SCH (20:28)
[2018-02-15] MEDS: buPROPion HCL 150 MG SUSTAINED RELEASE TAB PO SCH (20:28)
[2018-02-15] MEDS: DOCUSATE SODIUM 50 MG/SENNA 8.6 MG TAB PO SCH (20:28)
[2018-02-15] MEDS: METOPROLOL TARTRATE 25 MG TAB PO SCH (20:28)
[2018-02-16] VITALS (25 sets, daily range): BP systolic 108–140; BP diastolic 56–87; PULSE 63–81; RESP 15–18; TEMP 97.4–98.4; O2SAT 95–98
[2018-02-16] MEDS: MORPHINE SULFATE 4 MG/ML INJ IV PUSH PRN ×2 (03:05→05:40)
[2018-02-16 03:32] LABS: HEMATOCRIT 28.7 % (39.0-51.0); HEMOGLOBIN 9.7 GM/DL (13.0-17.0); MEAN CELL VOLUME 87.6 FL (80.0-100.0); MEAN CORPUSCULAR HEMOGLOBIN 29.8 PG (27.0-34.0); MEAN PLATELET VOLUME 7.5 FL (7.0-11.0); PLATELET COUNT 214 TH/MM3 (150-450); RED BLOOD COUNT 3.27 MIL/MM3 (4.50-5.90); RED CELL DISTRIBUTION WIDTH 13.5 % (11.6-17.2)
[2018-02-16 04:00] LABS: BICARBONATE 24.4 MEQ/L (21.0-32.0); CALCIUM 7.5 MG/DL (8.5-10.1); CREATININE 1.09 MG/DL (0.60-1.30)
--- NOTE | 2018-02-16 07:19 | PD.VS.PN ---
Subjective POD #: 1 Procedure(s): R SFA - AT bypass Subjective/Hospital Course no pain; terra po foot ok Objective Vitals/I&O Date Time Temp Pulse Resp B/P (MAP) Pulse Ox O2 Delivery O2 Flow Rate FiO2 02/16/18 06:09 75 02/16/18 05:00 65 02/16/18 04:17 67 02/16/18 03:17 98.2 81 15 140/87 (104) 97 02/16/18 03:17 76 02/16/18 02:00 64 02/16/18 01:00 63 02/16/18 00:38 98.2 69 15 132/63 (86) 98 02/16/18 00:00 63 02/15/18 23:00 72 02/15/18 22:00 60 02/15/18 21:00 62 02/15/18 20:00 60 02/15/18 19:14 98.4 60 16 138/65 (89) 99 02/15/18 19:00 63 02/15/18 18:00 63 02/15/18 17:45 60 02/15/18 17:30 97.9 60 18 109/58 (75) 98 02/15/18 17:00 60 16 107/56 (73) 100 Nasal Cannula 2 02/15/18 16:45 58 16 104/52 (69) 99 Nasal Cannula 2 02/15/18 16:30 60 16 101/57 (72) 99 Nasal Cannula 2 02/15/18 16:15 58 16 97/58 (71) 99 Nasal Cannula 2 02/15/18 16:00 60 16 95/50 (65) 99 Nasal Cannula 2 02/15/18 15:45 96.7 60 16 94/51 (65) 99 Nasal Cannula 2 02/15/18 15:30 60 16 98/48 (65) 100 Nasal Cannula 2 02/15/18 15:15 60 16 96/45 (62) 98 Nasal Cannula 2 02/15/18 15:00 60 16 96/48 (64) 98 Nasal Cannula 2 02/15/18 14:45 96.9 60 16 114/55 (74) 100 Nasal Cannula 2 02/16/18 02/16/18 02/16/18 07:00 15:00 23:00 Intake Total 480 ml Output Total 675 ml Balance -195 ml Exam: R thigh incision slightly full, skin not threatened R foot warm + DP / distal AT signal Laboratory Laboratory Tests Test 02/16/18 03:00 White Blood Count 7.0 Red Blood Count 3.27 Hemoglobin 9.7 Hematocrit 28.7 Mean Corpuscular Volume 87.6 Mean Corpuscular Hemoglobin 29.8 Mean Corpuscular Hemoglobin Concent 34.0 Red Cell Distribution Width 13.5 Platelet Count 214 Mean Platelet Volume 7.5 Blood Urea Nitrogen 17 Creatinine 1.09 Random Glucose 124 Calcium Level 7.5 Sodium Level 142 Potassium Level 4.6 Chloride Level 108 Carbon Dioxide Level 24.4 Anion Gap 10 Estimat Glomerular Filtration Rate 65 Assessment and Plan Plan POD#1 s/p R SFA-AT bypass looks good; foot ok; + pedal signal 1. PT/OOB 2. Castanon out - await UOP 3. Reg diet/meds Discharge Planning likely Thu/ : [phone] daughter: [phone] Scott Grace MD Feb 16, 2018 07:19
[2018-02-16] MEDS ORDERED: NON-FORMULARY DRUG (Multiple Vitamin 1 TAB) PO SCH (09:00)
[2018-02-16] MEDS: buPROPion HCL 150 MG SUSTAINED RELEASE TAB PO SCH ×2 (09:08→21:06)
[2018-02-16] MEDS: ATORVASTATIN 40 MG TAB PO SCH (09:08)
[2018-02-16] MEDS: MULTIVITAMIN TAB PO SCH (09:09)
[2018-02-16] MEDS: FAMOTIDINE 20 MG TAB PO SCH ×2 (09:09→21:06)
[2018-02-16] MEDS: METOPROLOL TARTRATE 25 MG TAB PO SCH ×2 (09:09→21:06)
[2018-02-16] MEDS: DOCUSATE SODIUM 50 MG/SENNA 8.6 MG TAB PO SCH ×2 (09:09→21:07)
[2018-02-16] MEDS: HYDROmorphone HCL 2 MG TAB PO PRN ×4 (09:11→21:06)
[2018-02-16] MEDS: ENOXAPARIN SODIUM 40 MG/0.4 ML SYRINGE SQ SCH (13:19)
[2018-02-16] MEDS: ASPIRIN 81 MG CHEW TAB CHEW SCH (21:06)
[2018-02-17] VITALS (18 sets, daily range): BP systolic 109–137; BP diastolic 53–68; PULSE 68–91; RESP 18; TEMP 97.6–98.1; O2SAT 94–98
--- NOTE | 2018-02-17 07:39 | PD.VS.PN ---
Subjective POD #: 2 Procedure(s): R SFA - AT bypass Subjective/Hospital Course OOB TC today feels well pain controlled terra po ambulating with walker Objective Vitals/I&O Date Time Temp Pulse Resp B/P (MAP) Pulse Ox O2 Delivery O2 Flow Rate FiO2 02/17/18 06:45 69 02/17/18 03:00 98.1 73 18 135/68 (90) 96 02/17/18 03:00 76 02/16/18 23:00 74 02/16/18 23:00 73 18 123/62 (82) 96 02/16/18 19:00 75 02/16/18 19:00 97.7 79 18 119/56 (77) 98 02/16/18 18:00 71 02/16/18 17:00 69 02/16/18 16:00 76 02/16/18 15:15 98.2 70 16 108/59 (75) 95 02/16/18 15:00 74 02/16/18 14:00 74 02/16/18 13:00 71 02/16/18 12:00 68 02/16/18 11:35 98.4 73 16 116/56 (76) 95 02/16/18 11:00 74 02/16/18 10:00 74 02/16/18 09:00 78 02/16/18 08:00 66 02/17/18 02/17/18 02/17/18 07:00 15:00 23:00 Intake Total 480 ml Output Total 550 ml Balance -70 ml Exam: R anterior thigh incision c/d/i; slightly full laterall distal calf incision covered Strong DP/distal AT Doppler signal Assessment and Plan Plan POD#2 s/p R SFA-AT bypass looks good; foot ok; + pedal signal 1. continue PT 2. ASA/statin 3. dressing down tomorrow (POD#3) Discharge Planning tomorrow (POD#3) to rehab : [phone] daughter: [phone] Scott Grace MD Feb 17, 2018 07:39
[2018-02-17] MEDS: FAMOTIDINE 20 MG TAB PO SCH ×2 (08:05→21:19)
[2018-02-17] MEDS: DOCUSATE SODIUM 50 MG/SENNA 8.6 MG TAB PO SCH ×2 (08:06→21:18)
[2018-02-17] MEDS: ATORVASTATIN 40 MG TAB PO SCH (08:06)
[2018-02-17] MEDS: buPROPion HCL 150 MG SUSTAINED RELEASE TAB PO SCH ×2 (08:06→21:18)
[2018-02-17] MEDS: MULTIVITAMIN TAB PO SCH (08:06)
[2018-02-17] MEDS: METOPROLOL TARTRATE 25 MG TAB PO SCH ×2 (08:06→21:20)
[2018-02-17] MEDS: ENOXAPARIN SODIUM 40 MG/0.4 ML SYRINGE SQ SCH (13:24)
[2018-02-17] MEDS: ASPIRIN 81 MG CHEW TAB CHEW SCH (21:19)
[2018-02-18] VITALS (21 sets, daily range): BP systolic 102–135; BP diastolic 56–64; PULSE 59–93; RESP 15–18; TEMP 97.9–98.3; O2SAT 93–98
[2018-02-18] MEDS: ATORVASTATIN 40 MG TAB PO SCH (08:30)
[2018-02-18] MEDS: METOPROLOL TARTRATE 25 MG TAB PO SCH (08:30)
[2018-02-18] MEDS: MULTIVITAMIN TAB PO SCH (08:31)
[2018-02-18] MEDS: buPROPion HCL 150 MG SUSTAINED RELEASE TAB PO SCH (08:31)
[2018-02-18] MEDS: DOCUSATE SODIUM 50 MG/SENNA 8.6 MG TAB PO SCH (08:31)
[2018-02-18] MEDS: FAMOTIDINE 20 MG TAB PO SCH (08:31)
--- NOTE | 2018-02-18 10:13 | PD.VS.PN ---
Subjective POD #: 3 Procedure(s): R SFA - AT bypass Subjective/Hospital Course Pt w/o complaints Reported R leg feels better LE warm w/ motor intact Objective Vitals/I&O Date Time Temp Pulse Resp B/P (MAP) Pulse Ox O2 Delivery O2 Flow Rate FiO2 02/18/18 09:00 68 02/18/18 08:03 98.0 64 18 102/64 (77) 97 02/18/18 08:00 62 02/18/18 07:00 59 02/18/18 06:05 65 02/18/18 05:03 69 02/18/18 04:00 90 02/18/18 03:35 98.3 90 18 135/61 (85) 93 02/18/18 03:31 67 02/18/18 03:00 68 02/18/18 02:00 70 02/18/18 01:02 93 02/18/18 00:00 97.9 76 16 107/56 (73) 93 02/18/18 00:00 73 02/17/18 23:00 76 02/17/18 22:00 73 02/17/18 21:00 76 02/17/18 20:00 98.1 74 18 126/60 (82) 98 02/17/18 20:00 72 02/17/18 19:00 91 02/17/18 18:07 76 02/17/18 17:05 74 02/17/18 16:00 71 02/17/18 15:33 97.8 75 18 109/53 (71) 94 02/17/18 15:33 73 02/17/18 15:28 18 02/17/18 14:06 73 02/17/18 13:01 69 02/17/18 12:08 74 02/17/18 11:06 80 02/17/18 11:06 97.7 78 18 137/63 (87) 94 02/17/18 10:06 68 02/18/18 02/18/18 02/18/18 07:00 15:00 23:00 Intake Total 240 ml Output Total 990 ml Balance -750 ml Exam: GENERAL: A&OX3,NAD, GCS15 SKIN: Warm and dry L groin S/NT R LE incisions intact w/o R/D/S/O HEAD: Normocephalic. EYES: No scleral icterus. No injection or drainage. NECK: Supple, trachea midline. No JVD or lymphadenopathy. CARDIOVASCULAR: Regular rate and rhythm without murmurs, gallops, or rubs. RESPIRATORY: Breath sounds equal bilaterally. No accessory muscle use. GASTROINTESTINAL: Abdomen soft, non-tender, nondistended. MUSCULOSKELETAL: No cyanosis, or edema. Biphasic R DP/PT herd via Doppler L LE Palpable DP Assessment and Plan Assessment: (1) PVD (peripheral vascular disease) Plan POD#3 S/p R SFA-AT bypass Pt looks good Foot ok + pedal signal Plan Pt clear for D/C to rehab Continue CV R/F modifications w/ a daily ASA/statin R LE Dressing removed Arranged out pt f/u Angie Espinal [facility] [phone] Discharge Planning today (POD#3) to rehab : [phone] daughter: [phone] Angie Espinal Feb 18, 2018 10:13
[2018-02-18] MEDS ORDERED: PERC5TAB12 PO (10:16)
--- NOTE | 2018-02-18 10:20 | PD.VS.DC ---
Discharge Summary Admission Date: Feb 15, 2018 at 17:15 Discharge Date: Feb 18, 2018 Admission Diagnosis: (1) PVD (peripheral vascular disease) Discharge Diagnosis: (1) PVD (peripheral vascular disease) ICD Codes: I73.9 - Peripheral vascular disease, unspecified Brief History from admission 82 yo male with multiple comorbidities and R LE rest pain. Presents for revascularization. No change in health since I saw him in clinic. Notes that leg hurts every night. No tissue loss Procedure(s): R SFA - AT bypass Significant Findings GENERAL: A&OX3,NAD, GCS15 SKIN: Warm and dry L groin S/NT R LE incisions intact w/o R/D/S/O HEAD: Normocephalic. EYES: No scleral icterus. No injection or drainage. NECK: Supple, trachea midline. No JVD or lymphadenopathy. CARDIOVASCULAR: Regular rate and rhythm without murmurs, gallops, or rubs. RESPIRATORY: Breath sounds equal bilaterally. No accessory muscle use. GASTROINTESTINAL: Abdomen soft, non-tender, nondistended. MUSCULOSKELETAL: No cyanosis, or edema. Biphasic R DP/PT herd via Doppler L LE Palpable DP Laboratory Tests Test 02/16/18 03:00 Red Blood Count 3.27 MIL/MM3 (4.50-5.90) Hemoglobin 9.7 GM/DL (13.0-17.0) Hematocrit 28.7 % (39.0-51.0) Random Glucose 124 MG/DL (74-106) Calcium Level 7.5 MG/DL (8.5-10.1) Chloride Level 108 MEQ/L (98-107) Estimat Glomerular Filtration Rate 65 ML/MIN (>89) Hospital Course: 82 yo male with multiple comorbidities and R LE rest pain. Presents for revascularization. Pt s/p R LE distal bypass for revascularization POD 1 no pain; terra po foot ok POD 2 OOB TC today feels well pain controlled terra po ambulating with walker POD 3 Pt w/o complaints Reported R leg feels better LE warm w/ motor intact Pt clear for D/C to rehab Continue CV R/F modifications w/ a daily ASA/statin R LE Dressing removed Arranged out pt f/u Reviewed E- Forcse- Pt prescribed post operative pain medication Allergies Coded Allergies Type Severity Reaction Last Updated Verified No Known Allergies Allergy Unknown 11/19/17 Yes 02/16/18 02/16/18 02/17/18 02/17/18 02/18/18 02/18/18 06:00 18:00 06:00 18:00 06:00 18:00 Intake Total 480 ml 840 ml 960 ml 240 ml Output Total 675 ml 0 ml 1550 ml 990 ml Balance -195 ml 840 ml -590 ml -750 ml Intake Oral 480 ml 840 ml 960 ml 240 ml Output Urine Total 675 ml 0 ml 1550 ml 990 ml Stool Total 0 ml Bladder Scan Volume Amount 20 ml 170 ml # Voids 1 # Bowel Movements 0 0 0 Laboratory Tests Test 02/16/18 03:00 White Blood Count 7.0 TH/MM3 Red Blood Count 3.27 MIL/MM3 Hemoglobin 9.7 GM/DL Hematocrit 28.7 % Mean Corpuscular Volume 87.6 FL Mean Corpuscular Hemoglobin 29.8 PG Mean Corpuscular Hemoglobin Concent 34.0 % Red Cell Distribution Width 13.5 % Platelet Count 214 TH/MM3 Mean Platelet Volume 7.5 FL Blood Urea Nitrogen 17 MG/DL Creatinine 1.09 MG/DL Random Glucose 124 MG/DL Calcium Level 7.5 MG/DL Sodium Level 142 MEQ/L Potassium Level 4.6 MEQ/L Chloride Level 108 MEQ/L Carbon Dioxide Level 24.4 MEQ/L Anion Gap 10 MEQ/L Estimat Glomerular Filtration Rate 65 ML/MIN Orders Procedure Category Date Status Time Protamine Sulfate Inj MED 02/15/18 Complete (Protamine Sulfate 11:23 Heparin Inj (Heparin MED 02/15/18 Complete Inj) 11:23 Heparin-Ns/Pf Inj MED 02/15/18 Complete (Heparin-Ns/Pf Inj) 11:23 Cefazolin 2 Gm Premix MED 02/15/18 Complete (Ancef 2 Gm Premix 11:23 Thrombin Top Clubb MED 02/15/18 Complete (Thrombin Top Clubb) 11:23 Acetaminophen 1000 MED 02/15/18 Complete Mg/100 Ml (Ofirmev 10 11:28 Heparin Inj (Heparin MED 02/15/18 Complete Inj) 11:35 Endovascular Cath CATH 02/15/18 Complete Urinary Catheter VIN 02/15/18 Complete Management 12:48 Am Admit Pre Op Care SDSC 02/15/18 Complete Vasopressin Inj MED 02/15/18 Complete (Pitressin Inj) 13:51 Admit To Inpatient ADMITTING 02/15/18 Transmitted Code Status CODE 02/15/18 Transmitted 14:28 Vital Signs (Adult) VIN 02/15/18 Complete 14:28 [employer] / VIN 02/15/18 In Process Telemetry 14:28 Activity Oob Ad Rajwinder VIN 02/16/18 In Process 08:00 Activity Bed Rest VIN 02/15/18 In Process 14:28 Notify Parameters VIN 02/15/18 In Process 14:28 Diet Heart Healthy DIET 02/15/18 Transmitted Dinner Basic Metabolic Panel LAB 02/16/18 Complete (Bmp) 06:00 Cbc No Diff, Includes LAB 02/16/18 Complete Plts 06:00 Consult Pt Eval & PT 02/15/18 Logged Treat 14:28 Famotidine (Pepcid) MED 02/15/18 Complete 21:00 Oxycodone (Roxicodone) MED 02/15/18 In Process 14:30 Hydromorphone MED 02/15/18 In Process (Dilaudid) 14:30 Morphine Inj MED 02/15/18 In Process (Morphine Inj) 14:30 Enoxaparin Inj MED 02/15/18 Complete (Lovenox Inj) 15:00 Docusate Sodium-Senna MED 02/15/18 In Process (Liberty-Colace) 21:00 Magnesium Hydroxide MED 02/15/18 In Process Liq (Milk Of Magnesi 14:30 Sennosides (Senokot) MED 02/15/18 In Process 14:30 Bisacodyl Supp MED 02/15/18 In Process (Dulcolax Supp) 14:30 Lactulose Liq MED 02/15/18 In Process (Lactulose Liq) 14:30 Amlodipine (Norvasc) MED 02/15/18 In Process 21:00 Aspirin Chew (Aspirin MED 02/15/18 In Process Chew) 21:00 Bupropion Sr MED 02/15/18 In Process (Wellbutrin Sr) 21:00 Metoprolol Tartrate MED 02/15/18 In Process (Lopressor) 21:00 Remove Urinary VIN 02/16/18 In Process Catheter 08:00 Iohexol 350 Inj MED 02/15/18 Complete (Omnipaque 350 Inj) 14:32 Midazolam Inj (Versed MED 02/15/18 Complete Inj) 14:53 Fentanyl Inj MED 02/15/18 Complete (Fentanyl Inj) 14:53 Multivitamin MED 02/16/18 In Process (Theragran) 09:00 Patient Own Medication MED 02/25/18 In Process 09:00 Enoxaparin Inj MED 02/16/18 In Process (Lovenox Inj) 14:00 Nursing Information MED 02/15/18 Complete (Misc Nursing Inform 14:46 [facility]18 Complete Post Anesthesia Oxygen [facility] 02/15/18 Complete Atorvastatin (Lipitor) MED 02/16/18 In Process 09:00 Sodium Chlorid 0.9% MED 02/15/18 Complete 500 Ml Inj (Ns 500 M 12:00 Lidocaine Pf 1% Inj MED 02/15/18 Complete (Xylocaine-Mpf 1% In 12:00 Rocuronium Inj MED 02/15/18 Complete (Zemuron Inj) 12:00 Neostigmine Inj MED 02/15/18 Complete (Prostigmine Inj) 12:00 Glycopyrrolate Inj MED 02/15/18 Complete (Robinul Inj) 12:00 Phenyleph/Ns 1000 MED 02/15/18 Complete Mcg/10ml Syr (Neosynep 12:00 Phenylephrine Inj MED 02/15/18 Complete (Neosynephrine Inj) 12:00 Ephedrine/Ns 25 Mg/5 MED 02/15/18 Complete Ml Syr (Ephedrine/N 12:00 Propofol 200 Mg/20 Ml MED 02/15/18 Complete Inj (Diprivan 200 12:00 Famotidine (Pepcid) MED 02/17/18 In Process 21:00 (Hub Use Only)Inp Phy CONS 02/17/18 Transmitted Cons/Ref Attending Discharge DISCHARGE 02/18/18 Transmitted Order Vital Signs Date Time Temp Pulse Resp B/P (MAP) Pulse Ox O2 Delivery O2 Flow Rate FiO2 02/18/18 10:05 69 02/18/18 09:00 68 02/18/18 08:03 98.0 64 18 102/64 (77) 97 02/18/18 08:00 62 18 07:00 59 618 06:05 65 618 05:03 69 618 04:00 90 02/18/18 03:35 98.3 90 18 135/61 (85) 93 18 03:31 67 618 03:00 68 618 02:00 70 18 01:02 93 02/18/18 00:00 97.9 76 16 107/56 (73) 93 02/18/18 00:00 73 2018 23:00 76 2018 22:00 73 2018 21:00 76 02/17/18 20:00 98.1 74 18 126/60 (82) 98 02/17/18 20:00 72 02/17/18 19:00 91 02/17/18 18:07 76 02/17/18 17:05 74 02/17/18 16:00 71 02/17/18 15:33 97.8 75 18 109/53 (71) 94 18 15:33 73 18 15:28 18 02/17/18 14:06 73 18 13:01 69 18 12:08 74 18 11:06 80 18 11:06 97.7 78 18 137/63 (87) 94 18 10:06 68 18 09:00 88 18 08:33 69 18 08:33 97.6 74 18 127/56 (79) 95 18 06:45 69 62018 03:00 98.1 73 18 135/68 (90) 96 2018 03:00 76 18 23:00 74 18 23:00 73 18 123/62 (82) 96 18 19:00 75 18 19:00 97.7 79 18 119/56 (77) 98 18 18:00 71 61918 17:00 69 61918 16:00 76 18 15:15 98.2 70 16 108/59 (75) 95 6/19/18 15:00 74 02/16/18 14:00 74 02/16/18 13:00 71 02/16/18 12:00 68 02/16/18 11:35 98.4 73 16 116/56 (76) 95 18 11:00 74 18 10:00 74 02/16/18 09:00 78 02/16/18 08:00 66 02/16/18 07:15 97.4 71 16 118/58 (78) 97 02/16/18 07:00 68 02/16/18 06:09 75 02/16/18 05:00 65 02/16/18 04:17 67 02/16/18 03:17 98.2 81 15 140/87 (104) 97 02/16/18 03:17 76 02/16/18 02:00 64 02/16/18 01:00 63 02/16/18 00:38 98.2 69 15 132/63 (86) 98 02/16/18 00:00 63 02/15/18 23:00 72 02/15/18 22:00 60 18 21:00 62 18 20:00 60 18 19:14 98.4 60 16 138/65 (89) 99 18 19:00 63 18 18:00 63 18 17:45 60 18 17:30 97.9 60 18 109/58 (75) 98 1818 17:00 60 16 107/56 (73) 100 Nasal Cannula 2 18 16:45 58 16 104/52 (69) 99 Nasal Cannula 2 18 16:30 60 16 101/57 (72) 99 Nasal Cannula 2 18 16:15 58 16 97/58 (71) 99 Nasal Cannula 2 18 16:00 60 16 95/50 (65) 99 Nasal Cannula 2 18/18 15:45 96.7 60 16 94/51 (65) 99 Nasal Cannula 2 18/18 15:30 60 16 98/48 (65) 100 Nasal Cannula 2 18 15:15 60 16 96/45 (62) 98 Nasal Cannula 2 02/15/18 15:00 60 16 96/48 (64) 98 Nasal Cannula 2 02/15/18 14:45 96.9 60 16 114/55 (74) 100 Nasal Cannula 2 Discharge Condition: Good Discharge Disposition: Discharge to SNF Discharge Instructions: DIET You may resume your heart healthy diet ACTIVITY Activity as tolerated May shower then pat dry incisions NO tub baths or swimming until your incisions are fully healed WOUND CARE Leave your incisions open to air Do not apply any creams or ointments to your incision as it may loosen your surgical glue Call the office ([phone]) to report any new onset redness, drainage, pain or swelling MEDICATION You may resume your daily home medications You were prescribed a narcotic pain medication which may cause drowsiness- No driving while taking this medication You were prescribed a narcotic pain medication which may cause constipation- Take with an over the counter stool softener Any questions or concerns: Call [facility] [phone] Angie Espinal Feb 18, 2018 10:20
[2018-02-18] MEDS: ENOXAPARIN SODIUM 40 MG/0.4 ML SYRINGE SQ SCH (14:22)
[2018-02-25] MEDS ORDERED: EVOLOCUMAB SQ SCH (09:00)
== END 2018-02-18 16:31 | DRG 254 ==
LOC: HSDC 08:55 → HCPC 17:15
PROVIDERS: ADMIT Surgery; ATTEND Surgery
PROC: 041K09Q Bypass Right Femoral Artery to Lower Extremity Artery with Autologous Venous Tissue, Open Approach (ICD-10-PCS; principal; 2018-02-15 11:35)
PROC: B44FZZ3 Ultrasonography of Right Lower Extremity Arteries, Intravascular (ICD-10-PCS; 2018-02-15 11:35)
DX: I70.221 Atherosclerosis of native arteries of extremities with rest pain, right leg (principal); I10 Essential (primary) hypertension; I25.10 Atherosclerotic heart disease of native coronary artery without angina pectoris; E78.5 Hyperlipidemia, unspecified; G47.30 Sleep apnea, unspecified; Z87.891 Personal history of nicotine dependence; Z86.73 Personal history of transient ischemic attack (TIA), and cerebral infarction without residual deficits
CPT/HCPCS: 36415; 75710; 80048; 85025; 85027; 85610; 86850; 86900; 86901; C1769; J0131; J0690; J1644; J1650; J2250; J2270; J2370; J2710; J2720; J3010; J7040; J7120; Q9967